=== PATIENT | male | born 1970 | race Caucasian/White ===

== ENCOUNTER → 2020-02-16 08:24 | Outpatient (CLI) | payer OTHER, SELFPAY ==
[2020-02-17 00:23] LABS: COVID19 Sendout Not Detected (Not Detect)
== END ==
PROVIDERS: PCP Family Medicine; Visit Provider Nurse Practitioner
DX: Z11.59 Encounter for screening for other viral diseases (principal)
CPT/HCPCS: 87635

== ENCOUNTER → 2020-07-20 06:50 | Outpatient (CLI) | payer OTHER, SELFPAY ==
--- NOTE | 2020-07-20 | DI.MRI.S_ITS ---
PROCEDURE: MR SHOULDER RT WO CON INDICATIONS: Pain in right shoulder TECHNIQUE: Noncontrast oblique coronal T2 fast spin echo with fat saturation, oblique sagittal T1 spin echo and T2 fast spin echo with fat saturation, axial T1 spin echo and T2 fast spin echo with fat saturation through the shoulder. COMPARISON: [facility], , UP EXT WITH, 11/15/2008, 14:48. FINDINGS: Image quality: Excellent. Rotator cuff: There is moderate to severe articular surface tearing within the distal supraspinatus involving its anterior fibers. A small full-thickness communication cannot be excluded. No tendon retraction. The infraspinatus demonstrates mild articular surface partial thickness tearing distally. The subscapularis and teres minor appear intact. Sagittal images demonstrate no fatty muscle atrophy. Bones and bursae: No bone marrow contusions or fractures. There is moderate to severe acromioclavicular joint degeneration with periarticular bone marrow and soft tissue edema and capsular hypertrophy. The acromion demonstrates slight lateral downsloping, without an os acromiale. A small amount of subacromial-subdeltoid bursal fluid is present. Capsule and soft tissues: There is degenerative signal within the anterior inferior labrum. In the absence of intra-articular contrast, the glenohumeral ligaments appear intact. The long head of the biceps tendon demonstrates normal location and morphology. The rotator interval appears normal, without fibrosis. The coracohumeral ligament is normal in thickness. IMPRESSION: 1. Moderate to severe articular surface tearing within the distal supraspinatus involving its anterior fibers. A small full-thickness communication cannot be excluded but there is no tendon retraction. 2. Moderate to severe acromioclavicular joint degeneration with a small amount of subacromial/subdeltoid bursal fluid. Dictated by: Lamberto Alonso M.D. on 07/20/2020 at 11:41 Approved by: Lamberto Alonso M.D. on 07/20/2020 at 11:49
== END ==
PROVIDERS: PCP Family Medicine; Referring Provider Nurse Practitioner Family; Visit Provider Nurse Practitioner Family
DX: M25.511 Pain in right shoulder (principal); M19.011 Primary osteoarthritis, right shoulder; M75.111 Incomplete rotator cuff tear or rupture of right shoulder, not specified as traumatic
CPT/HCPCS: 73221

== ENCOUNTER → 2020-12-21 17:48 | Outpatient (CLI) | payer OTHER, SELFPAY ==
--- NOTE | 2020-12-21 | DI.MRI.S_ITS ---
PROCEDURE: MR SHOULDER RT WO CON INDICATIONS: unspecified rotator cuff tear or rupture. Right shoulder pain TECHNIQUE: Noncontrast oblique coronal T2 fast spin echo with fat saturation, oblique sagittal T1 spin echo and T2 fast spin echo with fat saturation, axial T1 spin echo and T2 fast spin echo with fat saturation through the shoulder. COMPARISON: [facility], MR, MR SHOULDER RT WO CON, 07/20/2020, 7:22. FINDINGS: Rotator cuff: Infraspinatus tendinopathy and interstitial tearing extending to the musculotendinous junction. There is full thickness slit-like tear at the footprint for example image 8/8. Teres minor appears intact. Supraspinatus tendinopathy, with high-grade partial thickness articular and bursal sided tear for example image 13/8 measuring 1 cm on coronal pulse sequences. No definite atrophy of the rotator cuff muscles although there is diffuse fatty infiltration. Bones and bursae: No bone marrow contusions or fractures. Moderate acromioclavicular joint degeneration. Acromion demonstrates conventional anatomy, without an os acromiale. [id number] subacromial-subdeltoid bursitis. Capsule and soft tissues: Labrum: Circumferential fraying of the labrum. Possible chronic appearing tear of the anteroinferior segment versus advanced degeneration.. There is only minimal adjacent degenerative sclerosis and spurring at the glenoid. Long head of the biceps tendon intact. The rotator interval appears normal, without fibrosis. Coracohumeral ligament intact. IMPRESSION: Slit-like full-thickness tear involving the infraspinatus tendon, and background tendinopathy with interstitial tearing. This appears progressed since 07/20/20 Supraspinatus tendinopathy and high-grade partial articular and bursal sided tear. This appears grossly stable to minimally progressed since the prior study. Circumferential fraying of the labrum with possible chronic tear versus advanced degeneration involving the anterior inferior segment. Unchanged appearance Dictated by: Eleazar Faust M.D. on 12/22/2020 at 8:12 Approved by: Eleazar Faust M.D. on 12/22/2020 at 8:17
== END ==
PROVIDERS: PCP Family Medicine; Referring Provider Orthopaedic Surgery; Visit Provider Orthopaedic Surgery
DX: M75.101 Unspecified rotator cuff tear or rupture of right shoulder, not specified as traumatic (principal); S46.811A Strain of other muscles, fascia and tendons at shoulder and upper arm level, right arm, initial encounter
CPT/HCPCS: 73221

== ENCOUNTER → 2021-07-11 18:23 | Outpatient (CLI) | payer OTHER, SELFPAY ==
--- NOTE | 2021-07-11 | DI.MRI.S_ITS ---
PROCEDURE: MR LUMBAR SPINE WO CON INDICATIONS: Radiculopathy, lumbar region TECHNIQUE: Noncontrast sagittal T1 spin echo and T2 fast echo, sagittal STIR, axial T1 and T2 fast spin echo through the lumbar spine. In cases with scoliosis, additional coronal T2 fast spin echo may be performed. COMPARISON: None. FINDINGS: Image quality: Excellent. Alignment and Curvature: There is normal bony alignment. Bone Marrow: Marrow is of normal overall signal. No acute vertebral body compression fractures. Spinal Cord: Conus medullaris terminates at the L1 level. Visualized cord demonstrates normal signal and size. Paraspinous Soft Tissues: No paravertebral masses. T12-L1: Normal appearance. L1-L2: Normal appearance. L2-L3: Normal appearance. L3-L4: The disc height and disc signal are relatively well preserved. Mild generalized disc bulge is seen. There is moderate right-sided and [id number] left-sided neural foraminal narrowing seen. Minimal central canal narrowing is seen. L4-L5: The disc height is well-preserved. Loss of disc signal is seen at this level. Moderate generalized disc bulge is seen. There is a superimposed central disc protrusion. Mild facet joint hypertrophy is seen. There is moderate left-sided and moderate to severe right-sided neural foraminal narrowing seen. There is a mild degree of compression seen upon the exiting right L4 nerve root. Minimal central canal narrowing is seen. L5-S1: Mild loss of disc height is seen. Loss of disc signal is seen. Reactive marrow endplate changes are seen, which demonstrate mixed T1 weighted and T2-weighted signal, and are attributed to a combination of edema and fatty metaplasia (Modic type I and Modic type II changes). Moderate disc bulge is seen, which is eccentric to the left. There is a left lateral recess/foraminal disc protrusion seen. Moderate facet joint hypertrophy is seen. There is moderate to severe left-sided and at least moderate right-sided neural foraminal narrowing seen. There is a degree of compression seen upon the exiting L5 nerve roots, left worse than right. Minimal central canal narrowing is seen. IMPRESSION: Lumbar spine degenerative changes are seen, which are worst at the L5-S1 level, where there is compression seen upon the exiting L5 nerve roots, left worse than right. Dictated by: Colby Wilson M.D. on 07/11/2021 at 21:18 Approved by: Colby Wilson M.D. on 07/11/2021 at 21:20
== END ==
PROVIDERS: PCP Student in an Organized Health Care Education/Training Program; Referring Provider Student in an Organized Health Care Education/Training Program; Visit Provider Student in an Organized Health Care Education/Training Program
DX: M47.27 Other spondylosis with radiculopathy, lumbosacral region (principal); M47.26 Other spondylosis with radiculopathy, lumbar region
CPT/HCPCS: 72148

== ENCOUNTER 2021-07-23 12:50 | Emergency (ER) | payer OTHER, SELFPAY ==
[2021-07-23 13:21] VITALS: BP 145/94; PULSE 75; RESP 18; TEMP 36.8; O2SAT 97; BMI 31.1
[2021-07-23] MEDS: PROPARACAINE 0.5% OPHTH SOL 1 DROPS EYE-RIGHT (15:50)
[2021-07-23] MEDS: FLUORESCEIN 1 MG STRIP EYE-RIGHT (15:51)
--- NOTE | 2021-07-23 15:58 | ED.SKABFB ---
HPI - Skin/Abscess/Foreign Bdy <Juliocesar Gould PA-C - Last Filed: 07/23/21 18:55> General Chief complaint: Skin/Abscess/Foreign Body Stated complaint: shingles in eye Time Seen by Provider: 07/23/21 15:10 Source: patient Mode of arrival: Ambulatory Limitations: no limitations History of Present Illness HPI narrative: Patient is a 50-year-old male presenting to the emergency department today for evaluation of right eye pain. Patient states he began to experience right eye pain last night that has worsened today. He reports associated photophobia, tearing, and eye pain when looking downward. Of note, patient states that he had experienced shingles in his eye back in 2007 and he notes that his current pain feels similar. Patient denies fever, chills, rash, facial lesions, chest pain, shortness of breath, nausea, vomiting, diarrhea, abdominal pain, cough, dysuria, hematuria. No other concerns voiced at this time. Related Data Home Medications Medication Instructions Recorded Confirmed alprazolam 0.5 mg tablet 0.5 mg PO BEDTIME PRN 11/04/19 11/04/19 bimatoprost 0.01 % eye drops 2 drop EYE-BOTH DAILY ml 11/04/19 11/04/19 (Lumigan) fluticasone propionate 50 2 spray NASAL DAILY 11/04/19 11/04/19 mcg/actuation nasal spray,suspension (Flonase Allergy Relief) meloxicam 7.5 mg tablet 7.5 mg PO DAILY 01/10/21 01/10/21 tramadol 50 mg tablet 50 mg PO Q8H PRN 01/10/21 01/10/21 Previous Rx's Medication Instructions Recorded polymyxin B sulfate 10,000 2 drp EYE-RIGHT QID #10 ml 07/23/21 unit-trimethoprim 1 mg/mL eye drops Allergies Allergy/AdvReac Type Severity Reaction Status Date / Time silicone Allergy Intermediate Blistering, Verified 01/10/21 10:23 localized edema with exudate, induration ciprofloxacin [CIPROFLOXACIN] Allergy Unknown HIVES Unverified 01/10/21 10:23 Review of Systems <Juliocesar Gould PA-C - Last Filed: 07/23/21 18:55> Constitutional Constitutional: Denies chills, Denies fatigue, Denies fever(s), Denies frequent falls, Denies lethargy and Denies weakness Eyes Eyes: Reports eye discharge (Tearing), Reports irritation, Denies loss of vision, Reports eye pain (Right eye) and Reports photophobia (Right eye) ENT Ears, Nose, Mouth, and Throat: Denies change in voice, Denies dizziness, Denies neck pain, Denies sore throat and Denies throat swelling Cardiovascular Cardiovascular: Denies chest pain, Denies irregular heart rhythm, Denies lightheadedness, Denies palpitations, Denies dyspnea, Denies dyspnea on exertion and Denies orthopnea Respiratory Respiratory: Denies cough, Denies dyspnea, Denies dyspnea on exertion and Denies wheezing Gastrointestinal Gastrointestinal: Denies abdominal pain, Denies change in bowel habits, Denies diarrhea, Denies nausea and Denies vomiting Musculoskeletal Musculoskeletal: Denies back pain, Denies muscle weakness, Denies neck pain, Denies numbness and Denies tingling Neurologic Neurologic: Denies behavioral changes, Denies confusion, Denies dizziness, Denies frequent falls, Denies loss of vision, Denies numbness, Denies tingling and Denies weakness Psychiatric Psychiatric: Denies behavioral changes and Denies confusion Endocrine Endocrine: Denies fatigue and Denies palpitations Allergic/Immunologic Allergic/Immunologic: Denies throat swelling and Denies wheezing Patient History <Juliocesar Gould PA-C - Last Filed: 07/23/21 18:55> Medical History Diverticulitis (~2014) Dog bite of index finger (~2015) Insomnia (~1991) Obesity (BMI 30-39.9) (~2009) Obstructive sleep apnea syndrome (~2009) Snoring (~1993) Family History Family/Other Dementia Father Loud snoring Alcohol abuse Mother Alcohol abuse Cancer Dementia Family/Other Heart disease Alcohol abuse Substance abuse Social History marital status: (to Ave, lives in [place]) 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 Well-developed patient, in mild distress. Appears uncomfortable. HEAD: Atraumatic. Normocephalic. EYES: Pupils equal round and reactive. Extraocular motions intact. No scleral icterus. Right eye with conjunctival injection an active tearing. Eye partially closed at rest. Patient exhibits mild photophobia in the right eye. ENT: Nose without bleeding, purulent drainage. Throat without erythema, tonsillar hypertrophy or exudate. Airway patent. NECK: Trachea midline. Non tender CARDIOVASCULAR: Regular rate and rhythm without murmurs, gallops, or rubs. RESPIRATORY: Clear to auscultation. Breath sounds equal bilaterally. No wheezes, rales, or rhonchi. GASTROINTESTINAL: Abdomen soft, non-tender, nondistended. EXTREMITIES: No edema or joint tenderness. BACK: Nontender without deformity or crepitance. No flank tenderness. NEURO: AOx3. SKIN: No rash or erythema of visible areas Initial Vital Signs Initial Vital Signs: Vital Signs Temperature 98.3 F 07/23/21 13:21 Pulse Rate 75 07/23/21 13:21 Respiratory Rate 18 07/23/21 13:21 Blood Pressure 145/94 H 07/23/21 13:21 Pulse Oximetry 97 07/23/21 13:21 Eyes Other: Fluorescein eye stain demonstrates corneal abrasion at the 5 o'clock position of the right cornea. <Julita Moore DO - Last Filed: 07/26/21 07:50> Initial Vital Signs Initial Vital Signs: Vital Signs Temperature 98.3 F 07/23/21 13:21 Pulse Rate 75 07/23/21 13:21 Respiratory Rate 18 07/23/21 13:21 Blood Pressure 145/94 H 07/23/21 13:21 Pulse Oximetry 97 07/23/21 13:21 Course <Juliocesar Gould PA-C - Last Filed: 07/23/21 18:55> Course Course Narrative: Proparacaine eye drops administered to both eyes. Orders Ordered: Discontinued Medications Fluorescein Sodium (Fluorescein 1 Mg Strip) 1 mg EYE-RIGHT NOW ONE Stop: 07/23/21 15:43 Last Admin: 07/23/21 15:51 Dose: 1 mg Documented by: BTONER Proparacaine HCl (Proparacaine 0.5% Ophth Yoana) 1 drops EYE-RIGHT NOW ONE Stop: 07/23/21 15:43 Last Admin: 07/23/21 15:50 Dose: 1 drop Documented by: BTONER Vital Signs Vital signs: Vital Signs - 8 hr 07/23/21 13:21 Temperature 98.3 F Pulse Rate 75 Respiratory Rate 18 Blood Pressure 145/94 H Pulse Oximetry 97 <Julita Moore DO - Last Filed: 07/26/21 07:50> Orders Ordered: Discontinued Medications Fluorescein Sodium (Fluorescein 1 Mg Strip) 1 mg EYE-RIGHT NOW ONE Stop: 07/23/21 15:43 Last Admin: 07/23/21 15:51 Dose: 1 mg Documented by: BTONER Proparacaine HCl (Proparacaine 0.5% Ophth Yoana) 1 drops EYE-RIGHT NOW ONE Stop: 07/23/21 15:43 Last Admin: 07/23/21 15:50 Dose: 1 drop Documented by: BTONER Vital Signs Vital signs: Vital Signs - 8 hr 07/23/21 13:21 Temperature 98.3 F Pulse Rate 75 Respiratory Rate 18 Blood Pressure 145/94 H Pulse Oximetry 97 MDM - Skin/Abscess/Foreign Bdy <Juliocesar Gould PA-C - Last Filed: 07/23/21 18:55> MDM Narrative Medical decision making narrative: Patient is a 50-year-old male presenting to the emergency department today for evaluation of right eye pain. To consider herpes zoster oticus versus corneal abrasion versus bacterial conjunctivitis versus viral conjunctivitis versus allergic conjunctivitis. Overall physical examination history reassuring. Small corneal abrasion appreciated the right cornea and the 5 o'clock position. Discussed with patient finding of the fluorescein on exam. At this time he feels comfortable being discharged home. Strict return precautions discussed with patient prior to discharge. Discharge Plan Departure Patient Disposition: Home Clinical Impression: Corneal abrasion Instructions: Corneal Abrasion Activity Restrictions/Additional Instructions: *You have been diagnosed with right corneal abrasion *What to do: *Please continue to take your regular medications as directed. [X] New medication prescriptions sent to your pharmacy: [facility] - Polymyxin B [ ] New medication written as a paper prescription [ ] No new medications given *Please follow up with your primary care provider in 2-3 days, call for an appointment. Let them know you were seen in the Emergency Department and that we ask that you be seen in follow up. We will electronically transmit a record of today's note if your PCP is in our system. *Please follow-up with Dr. Noble (ophthalmology). Office can be reached at . *If you do not have a primary care provider please contact the [facility] Resource line at [phone]. They will ask some questions about your medical history and help get you set up with a doctor in the community. *Return to Emergency Department if you should have any new, worsening or concerning symptoms, such as fever greater than 101 F, shaking chills, worsening pain, persistent vomiting or other bothersome symptoms. Prescriptions: New polymyxin B sulf-trimethoprim 10,000 unit- 1 mg/mL drops 2 drp EYE-RIGHT QID Qty: 10 0RF No Action alprazolam 0.5 mg tablet 0.5 mg PO BEDTIME PRN0RF fluticasone propionate [Flonase Allergy Relief] 50 mcg/actuation spray,suspension 2 spray NASAL DAILY 0RF Lumigan 0.01 % drops 2 drop EYE-BOTH DAILY 0RF tramadol 50 mg tablet 50 mg PO Q8H PRN0RF meloxicam 7.5 mg tablet 7.5 mg PO DAILY 0RF Referrals: Jericho Grove DO [Primary Care Provider] - Dominguez Noble MD [Physician] - As soon as possible <Julita Moore DO - Last Filed: 07/26/21 07:50> Cosign ED Attending Cosignature Attestation: Patient was also seen and evaluated by myself. Fluorescein exam was performed with myself. Patient has uptake at the 5 to 6 o'clock position consistent with corneal abrasion with some punctate uptake over the sclera. Patient does not have any rash or other skin changes noted today lesions are appreciated. Eyelid was flipped and evaluated and there are no foreign bodies. No other significant changes on eye exam appreciated. Patient planned with antibiotics
== END 2021-07-23 16:46 | disposition home or self-care (01) ==
PROVIDERS: Emergency Provider Physician Assistant; PCP Student in an Organized Health Care Education/Training Program
DX: S05.01XA Injury of conjunctiva and corneal abrasion without foreign body, right eye, initial encounter (principal); X58.XXXA Exposure to other specified factors, initial encounter
CPT/HCPCS: 99282

== ENCOUNTER 2022-08-06 11:48 | Emergency (ER) | payer OTHER, SELFPAY ==
[2022-08-06 12:02] VITALS: BP 122/65; PULSE 85; RESP 18; TEMP 36.9; O2SAT 97; BMI 29.8
--- NOTE | 2022-08-06 12:04 | DI.RAD.S_ITS ---
PROCEDURE: XR CHEST 2V INDICATIONS: covid + pnemonia? TECHNIQUE: 2 views of the chest were acquired. COMPARISON: None. FINDINGS: Surgical changes and devices: None. Lungs and pleura: Lungs are clear. No pleural effusions or pneumothorax. Mediastinum: Mediastinal contours are normal. Heart size is normal. Bones and chest wall: No suspicious bony abnormalities. Soft tissues appear unremarkable. IMPRESSION: No acute cardiopulmonary process demonstrated radiographically. Dictated by: Tavo Malik M.D. on 08/06/2022 at 12:50 Approved by: Tavo Malik M.D. on 08/06/2022 at 12:50
--- NOTE | 2022-08-06 12:35 | ED_ITS ---
HPI - URI/Sore Throat <Carlene Calderon, DISINTEGRATOR - Last Filed: 08/06/22 13:09> General Chief Complaint: Upper Respiratory Symptoms Stated Complaint: covid+ getting worse congestion Time Seen by Provider: 08/06/22 12:04 Source: patient Mode of arrival: Ambulatory History of Present Illness HPI Narrative: This is a 51-year-old male who presents to the emergency department with COVID positive infection who tested positive 5 days ago and presents with ongoing congestion, increased mucus mucus production, coughing late at night and states that he feels short of breath when he has that much mucus. He denies wheezing, denies history of COPD or asthma. He does have history of sleep apnea and wears CPAP at night. His primary care provider prescribed for him prednisone x5 days in his last dose was yesterday, was also prescribed inhalers and states he has been using them. He denies taking any allergy medicine, Flonase, or other medication for his congestion. He denies orthopnea, denies fevers, vomiting or diarrhea. Related Data Home Medications Medication Instructions Recorded Confirmed alprazolam 0.5 mg tablet 0.5 mg PO BEDTIME PRN 11/04/19 11/04/19 bimatoprost 0.01 % eye drops 2 drop EYE-BOTH DAILY 11/04/19 11/04/19 (Lumigan) fluticasone propionate 50 2 spray intranasal DAILY 11/04/19 11/04/19 mcg/actuation nasal spray,suspension (Flonase Allergy Relief) meloxicam 7.5 mg tablet 7.5 mg PO DAILY 01/10/21 01/10/21 tramadol 50 mg tablet 50 mg PO Q8H PRN 01/10/21 01/10/21 Previous Rx's Medication Instructions Recorded polymyxin B sulfate 10,000 2 drp EYE-RIGHT QID #10 mL 07/23/21 unit-trimethoprim 1 mg/mL eye drops benzonatate 200 mg capsule 200 mg PO TID PRN cough #20 caps 08/06/22 cetirizine 10 mg tablet 20 mg PO BEDTIME congestion #30 08/06/22 tabs dextromethorphan HBr 15 mg tablet 30 mg PO Q8H PRN cough #20 tabs 08/06/22 pseudoephedrine 30 mg-codeine 10 10 ml PO Q6H PRN congestion #120 mL 08/06/22 mg-guaifen 200 mg/5 mL oral liquid pseudoephedrine 30 mg-codeine 10 10 ml PO Q6H PRN cough #120 mL 08/06/22 mg-guaifen 200 mg/5 mL oral liquid Allergies Allergy/AdvReac Type Severity Reaction Status Date / Time silicone Allergy Intermediate Blistering, Verified 08/06/22 12:06 localized edema with exudate, induration ciprofloxacin [CIPROFLOXACIN] Allergy Unknown HIVES Verified 08/06/22 12:06 Review of Systems <BRITT Wang - Last Filed: 08/06/22 13:09> Review of Systems ROS Unobtainable: All systems reviewed & are unremarkable except as noted in HPI and below Patient History <BRITT Wang - Last Filed: 08/06/22 13:09> Medical History Diverticulitis (~2014) Dog bite of index finger (~2015) Insomnia (~1991) Obesity (BMI 30-39.9) (~2009) Obstructive sleep apnea syndrome (~2009) Snoring (~1993) Family History Family/Other Dementia Father Loud snoring Alcohol abuse Mother Alcohol abuse Cancer Dementia Family/Other Heart disease Alcohol abuse Substance abuse Social History marital status: (to Ave, lives in [place]) 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 General: cooperative, comfortable, in no acute distress, well groomed HEENT: symmetrical facial expressions, moist mucous membranes, without sinus tenderness or rhinorrhea Cardiovascular: regular rate and rhythm, no peripheral edema, warm extremities Respiratory: normal effort, frequent wet sounding cough, mildly tachypneic, congested, able to speak in complete sentences, without wheezing, stridor, or abnormal breath sounds. No retractions GI: abdomen soft, nontender,, nondistended, bowel tones active MSK: moves all extremities, neurovascularly intact, no weakness, normal tone Skin: brisk capillary refill, without pallor or erythema Neuro: normal speech and cognition, A&O x3, ambulatory, clear speech Psych: mental status is grossly normal, congruent mood, normal affect, pleasant and cooperative Initial Vital Signs Initial Vital Signs: Vital Signs Temperature 98.4 F 08/06/22 12:02 Pulse Rate 85 08/06/22 12:02 Respiratory Rate 18 08/06/22 12:02 Blood Pressure 122/65 08/06/22 12:02 Pulse Oximetry 97 08/06/22 12:02 Oxygen Delivery Method 08/06/22 12:02 <Zahira Edwards DO - Last Filed: 08/07/22 09:55> Initial Vital Signs Initial Vital Signs: Vital Signs Temperature 98.4 F 08/06/22 12:02 Pulse Rate 85 08/06/22 12:02 Respiratory Rate 18 08/06/22 12:02 Blood Pressure 122/65 08/06/22 12:02 Pulse Oximetry 97 08/06/22 12:02 Oxygen Delivery Method 08/06/22 12:02 Course <BRITT Wang - Last Filed: 08/06/22 13:09> Orders Ordered: Discontinued Medications Dexamethasone (Dexamethasone 10 Mg/Ml Vial) 10 mg PO NOW ONE Stop: 08/06/22 12:29 Last Admin: 08/06/22 12:48 Dose: 10 mg Documented By: JOSE MIGUEL Guaifenesin (Guaifenesin Er 600 Mg Tab) 600 mg PO NOW ONE Stop: 08/06/22 12:29 Last Admin: 08/06/22 12:48 Dose: 600 mg Documented By: JOSE MIGUEL Vital Signs Vital signs: Vital Signs - 8 hr 08/06/22 12:02 Temperature 98.4 F Pulse Rate 85 Respiratory Rate 18 Blood Pressure 122/65 Pulse Oximetry 97 Oxygen Delivery Method Room Air <Zahira Edwards DO - Last Filed: 08/07/22 09:55> Orders Ordered: Discontinued Medications Dexamethasone (Dexamethasone 10 Mg/Ml Vial) 10 mg PO NOW ONE Stop: 08/06/22 12:29 Last Admin: 08/06/22 12:48 Dose: 10 mg Documented By: JOSE MIGUEL Guaifenesin (Guaifenesin Er 600 Mg Tab) 600 mg PO NOW ONE Stop: 08/06/22 12:29 Last Admin: 08/06/22 12:48 Dose: 600 mg Documented By: JOSE MIGUEL Vital Signs Vital signs: Vital Signs - 8 hr 08/06/22 12:02 Temperature 98.4 F Pulse Rate 85 Respiratory Rate 18 Blood Pressure 122/65 Pulse Oximetry 97 Oxygen Delivery Method Room Air [facility] - URI/Sore Throat <Carlene Calderon, [facility] - Last Filed: 08/06/22 13:09> Imaging Data Chest x-ray: Radiologist's Impression: PROCEDURE:? XR CHEST 2V ? INDICATIONS:? covid + pnemonia? ? TECHNIQUE:? 2 views of the chest were acquired.? ? COMPARISON:? None. ? FINDINGS:? ? Surgical changes and devices:? None.? ? Lungs and pleura:? Lungs are clear.? No pleural effusions or pneumothorax.? ? Mediastinum:? Mediastinal contours are normal.? Heart size is normal.? ? Bones and chest wall:? No suspicious bony abnormalities.? Soft tissues appear unremarkable.? ? IMPRESSION:? No acute cardiopulmonary process demonstrated radiographically. ? ? Dictated by: Tavo Malik M.D. on 08/06/2022 at 12:50 ? ? Approved by: Tavo Malik M.D. on 08/06/2022 at 12:50 ? [facility] Narrative Medical decision making narrative: This is a 51-year-old male who tested positive for COVID 19 6 days ago who presents to the emergency department after he finished a prednisone course for 5 days complaining of increased congestion, frequent cough, sputum production increased sinus drainage. He is had sinus tenderness, without patchy opacity or focal consolidation on chest x-ray, fevers or vomiting. This is most likely brought guidance related to COVID-19 infection. In the emergency department given 10 mg of p.o. Decadron, respiratory therapy evaluation agrees with care plan, no further steroids indicated, patient does not have tight breath sounds or any wheezing. Breath sounds were clear throughout, patient does have a wet and it is frequent. He was given prescription benzonatate, dextromethorphan he fluticasone encouraged to use this daily, cetirizine, pseudoephedrine with codeine as needed for congestion and cough. Patient is without wheezing or shortness of breath. He is without without hypoxia, respiratory distress, dehydration, or focal exam to suggest secondary bacterial infection. Discussed supportive treatments: Tylenol/Motrin as needed for pain/fever. OTC decongestant medications and/or antihistamines for symptomatic relief. Maintain adequate fluid intake. Follow- up with PCP as directed. Return to ER instructions discussed for new, not improving, or worsening symptoms. All questions answered. Discharge Plan Departure Patient Disposition: Home Clinical Impression: Bronchitis due to COVID-19 virus Instructions: DI for Acute Bronchitis, COVID-19 Activity Restrictions/Additional Instructions: *You have been diagnosed with increased congestion and mucus from your COVID infection. This causes bronchitis and increased mucus production from her sinuses, I have given you some medications to help with cough, congestion and frequency of cough with hopes that you can sleep. This should make your mucus thin, hopefully you will have less of it, please use ibuprofen and Tylenol as needed for inflammation/fever or pain. Stay hydrated, I do not see a need for further steroids at this point, hopefully you start feeling better soon. Chest x-ray does not show any evidence of pneumonia, or other bacterial infection. Please follow-up with your PCP if you do not have improvement with these therapies. Use your Flonase morning and night to help with increased mucus production from your sinuses. If you start getting dry nares, you may need a humidifier. *What to do: *Please continue to take your regular medications as directed. [ x] New medication prescriptions sent to your pharmacy: [[facility] ] [ ] New medication written as a paper prescription [ ] No new medications given *Please follow up with your primary care provider in 2-3 days, call for an appointment. Let them know you were seen in the Emergency Department and that we ask that you be seen in follow up. We will electronically transmit a record of today's note if your PCP is in our system *If you do not have a primary care provider please contact the [facility] Resource line at [phone]. They will ask some questions about your medical history and help get you set up with a doctor in the community. *Return to Emergency Department if you should have any new, worsening or concerning symptoms, such as [fever greater than 101 F, shaking chills, worsening pain, persistent vomiting or other bothersome symptoms] Prescriptions: New cetirizine 10 mg tablet 20 mg PO BEDTIME Qty: 30 0RF smgoxapfbwttcda-vocicgk-CY 30-10-200 mg/5 mL liquid 10 ml PO Q6H PRN (Reason: congestion) Qty: 120 0RF benzonatate 200 mg capsule 200 mg PO TID PRN (Reason: cough) Qty: 20 0RF dextromethorphan HBr 15 mg tablet 30 mg PO Q8H PRN (Reason: cough) Qty: 20 0RF vehdvnmksqnvuyt-xmklgov-WT 30-10-200 mg/5 mL liquid 10 ml PO Q6H PRN (Reason: cough) Qty: 120 0RF No Action polymyxin B sulf-trimethoprim 10,000 unit- 1 mg/mL drops 2 drp EYE-RIGHT QID Qty: 10 0RF alprazolam 0.5 mg tablet 0.5 mg PO BEDTIME PRN fluticasone propionate [Flonase Allergy Relief] 50 mcg/actuation spray,suspension 2 spray NASAL DAILY Lumigan 0.01 % drops 2 drop EYE-BOTH DAILY tramadol 50 mg tablet 50 mg PO Q8H PRN meloxicam 7.5 mg tablet 7.5 mg PO DAILY Referrals: Jericho Grove DO [Primary Care Provider] - Visit Report Forms: Patient Portal/API <Zahira Edwards DO - Last Filed: 08/07/22 09:55> Cosign ED Attending Jasbirature Attestation: I was immediately available in the department for consultation. Documentation has been reviewed. I agree with assessment and plan.
[2022-08-06] MEDS: guaiFENesin ER 600 MG TAB PO (12:48)
[2022-08-06] MEDS: DEXAMETHASONE 10 MG/ML VIAL PO (12:48)
== END 2022-08-06 13:18 | disposition home or self-care (01) ==
PROVIDERS: Emergency Provider Nurse Practitioner Critical Care Medicine; PCP Student in an Organized Health Care Education/Training Program
DX: U07.1 COVID-19 (principal); J20.8 Acute bronchitis due to other specified organisms
CPT/HCPCS: 71046; 99283; J1100

== ENCOUNTER → 2025-02-05 06:02 | Outpatient (CLI) | payer OTHER, SELFPAY ==
--- NOTE | 2025-02-05 06:04 | DI.US.S_ITS ---
PROCEDURE: US ABDOMEN LIMITED INDICATIONS: UPPER ABDOMINAL PAIN TECHNIQUE: Real-time scanning was performed of the abdominal and retroperitoneal organs, with image documentation. COMPARISON: None. FINDINGS: Liver: Liver is normal in size and homogeneous in echotexture. Gallbladder: Multiple mobile foci of echogenicity are present within the gallbladder lumen. No wall thickening. No pericholecystic edema. Negative sonographic Oneil's sign. Biliary ducts: Intrahepatic bile ducts are non-dilated. Extrahepatic bile duct caliber measures 5.4 mm. Normal is 6-7 mm or less in diameter, or 10 mm or less post-cholecystectomy. Pancreas: Visualized portions of the pancreas are sonographically normal. Miscellaneous: No free abdominal fluid. IMPRESSION: Cholelithiasis without imaging appearance of cholecystitis. Dictated by: Love Meyers M.D. on 02/06/2025 at 16:33 Approved by: Love Meyers M.D. on 02/06/2025 at 16:33
== END ==
LOC: US 06:03
PROVIDERS: Referring Provider Nurse Practitioner Family; Visit Provider Nurse Practitioner Family
DX: K80.20 Calculus of gallbladder without cholecystitis without obstruction (principal); R10.10 Upper abdominal pain, unspecified
CPT/HCPCS: 76705